=== PATIENT | female | born 1985 | race Caucasian/White ===

== ENCOUNTER 2020-10-21 13:33 | Emergency (ER) | payer MEDICARE, MEDICAID, SELFPAY ==
[2020-10-21 14:49] VITALS: BP 123/76; PULSE 73; RESP 16; TEMP 37.2; O2SAT 99; BMI 36.3
[2020-10-21 16:38] LABS: MANUAL DIFF FLAG NO
[2020-10-21 16:39] LABS: Basophils Percent Auto 0.3 % (0-2); Eosinophils Absolute Auto 0.3 X10*3/uL (0.0-0.4); Eosinophils Percent Auto 2.8 % (0-4); Hematocrit 42.5 % (37-47); Hemoglobin 13.7 g/dl (12.0-16.0); Imm Gran Abs Auto 0.03 X10*3/uL (0.00-0.03); Imm Gran Pct Auto 0.3 % (0.0-0.4); Lymphocytes Absolute Auto 1.8 X10*3/uL (1.2-4.9); Lymphocytes Percent Auto 16.1 % (20-40); Mean Corpuscular HGB Conc 32.2 g/dl (31.0-35.0); Mean Corpuscular Hemoglobin 29.1 pg (27.0-33.0); Mean Corpuscular Volume 90.4 fL (80-98); Monocytes Absolute Auto 0.6 X10*3/uL (0.1-1.2); Monocytes Percent Auto 5.1 % (2-11); Neutrophils Absolute Auto 8.4 X10*3/uL (2.0-8.3); Neutrophils Percent Auto 75.4 % (45-73); Platelet Count 424 X10*3/uL (160-400); Red Cell Distribution Width 12.7 % (11.0-16.0); White Blood Count 11.1 X10*3/uL (4.8-10.8)
[2020-10-21 17:01] LABS: Anion Gap 12 (12-20); Blood Urea Nitrogen 11 mg/dL (9-16); Calcium 9.5 mg/dL (8.4-10.2); Carbon Dioxide 26 mmol/L (22-29); Chloride 105 mmol/L (96-108); Creatinine Clr Calc Pharmacy 130.1; Estimated Glomerular Filt Rate > 60; Glucose Random 78 mg/dL (60-115); Potassium 4.2 mmol/L (3.3-5.1); Sodium 139 mmol/L (135-145)
[2020-10-21 17:25] VITALS: BP 138/79; PULSE 75; RESP 18; O2SAT 98
--- NOTE | 2020-10-21 17:27 | PC.NURSE ---
pt alert and oriented, skin pwd, respirations even and unlabored. pt [place] [facility] [place] since then not feeling right, dizzy when ambulating/feels light headed and disoriented. still having slight discomfort in the right upper region.
[2020-10-21 17:30] VITALS: BP 125/81; PULSE 76
[2020-10-21 17:31] VITALS: BP 141/85; PULSE 75
[2020-10-21 17:32] VITALS: BP 127/71; PULSE 76
--- NOTE | 2020-10-21 17:39 | ED.GENADULT ---
HPI - General Adult General Chief complaint: Dizziness Stated complaint: lightheaded Time Seen by Provider: 10/21/20 17:38 Source: patient Mode of arrival: ambulatory Limitations: no limitations History of Present Illness HPI narrative: 35-year-old female status post laparoscopic cholecystectomy a week ago at [facility], patient is here today for postoperative concern of elevated blood pressure at home to 140s systolic patient is not on hypertensive normally, patient also been feeling foggy and drowsy after the surgery, patient take oxycodone for pain and patient used oxycodone today. Patient otherwise has been eating and drinking normally. Two days after the surgery patient had 4 extremities numbness that lasted for 1 day now it has improved with no symptoms. Related Data Allergies Allergy/AdvReac Type Severity Reaction Status Date / Time aspartame [ASPARTAME] Allergy Unknown VOMITING, Verified 10/21/20 14:55 MIGRAINES cephalexin [From KEFLEX] Allergy Unknown UNKNOWN Verified 10/21/20 14:55 Cephalosporins Allergy Unknown UNK Verified 10/21/20 14:55 [CEPHALOSPORINS] topiramate [From TOPAMAX] Allergy Unknown MIGRAINES Verified 10/21/20 14:55 tramadol [TRAMADOL] Allergy Unknown MIGRAINES Verified 10/21/20 14:55 metronidazole [From Flagyl] Allergy Nausea and Verified 10/21/20 14:55 Vomiting Review of Systems Review of Systems: All other systems are reviewed and are negative Constitutional: Reports as per HPI and Reports no additional constitutional complaints Eyes: Reports as per HPI and Reports no additional eye complaints Reports system reviewed and no additional complaints, except as documented Cardiovascular: Reports as per HPI and Reports no additional cardiovascular complaints Respiratory: Reports as per HPI and Reports no additional respiratory complaints Gastrointestinal: Reports as per HPI and Reports no additional gastrointestinal complaints Genitourinary: Reports no additional female genitourinary complaints Musculoskeletal: Reports no additional musculoskeletal complaints Skin/Breast: Reports system reviewed and no additional complaints, except as docu Psychiatric: Reports no additional psychiatric complaints Endocrine: Reports no additional endocrine complaints Hematologic/Lymphatic: Reports no additional hematologic/lymphatic complaints Allergic/Immunologic: Reports no additional allergic/immunologic complaints Reports system reviewed and no additional complaints, except as documented and Reports Abnormal speech present [facility] Past Medical History Medical History Fibromyalgia Neurofibromatosis type 1-like syndrome Rheumatoid arthritis Social History Social History Patient Tobacco Use Status: Never used Tobacco Use of substances other than those prescribed or required for medical reasons: Yes Substance Use Type: Marijuana Substance Use Frequency: Occasionally Advance Directives: No Advance Directives Information Provided: No Patient : No Physical Exam Vital Signs: Vital Signs: Last Vital Signs Temp 98.2 F 10/21/20 19:35 Pulse 77 10/21/20 19:35 Resp 16 10/21/20 19:35 BP 120/70 10/21/20 19:35 Pulse Ox 100 10/21/20 19:35 Body Mass Index 36.3 Vital signs have been reviewed as appeared to be correct. Blood pressure normal. Heart rate normal. Respiration rate normal. Temperature normal. Oxygen saturation normal. Appearance: Alert. Oriented X3. No acute distress. Head: Normal external exam. Normocephalic. Atraumatic. No Abad signs noted. No raccoon eyes noted Eyes: PERRLA. EOMI. Conjunctiva and sclera normal. Eyelids normal. ENT: TM's Normal. Pharynx normal. Uvula midline. Moist mucous membranes. No trismus noted. No drooling noted. No muffled voice noted. Neck: Normal inspection. Neck supple. FROM. No adenopathy. Thyroid Normal. No meningeal signs. No neck mass noted. CVS: Normal heart rate and rhythm. Heart sound normal. No murmurs noted. Pulses normal throughout. Respiratory: No respiratory distress. Painless inspiration. Breath sounds normal. No wheezes/rales/rhonchi noted. Chest nontender. No accessory muscle usage noted or decreased air movement noted. Abdomen: Soft and nontender. Bowel sounds normal in all 4 quadrants. No distention noted. No organomegaly noted. No visible injury noted. Back: No CVA tenderness. Full range of motion noted. Skin: Skin warm and dry. Normal skin color. Normal skin turgor. No rashes/lesions/lacerations noted. Extremities: No lower extremity edema. Extremities exhibit normal range of motion. Extremities nontender. Neuro: Oriented X 3. Cranial nerve exam: II-XII are grossly intact No motor deficit. No sensory deficit. Reflexes normal. Course Course Course Narrative: Assessment and plan. 35-year-old female status post laparoscopic cholecystectomy, patient came in for evaluation of postoperative concerns, patient with unremarkable vital signs except slight elevation of the blood pressure, unremarkable labs. Will reassure and discharge to follow-up with the surgeon for postsurgical follow-up. Medical Decision Making Lab Data Lab results reviewed: Yes I reviewed the patient's lab results. Result diagrams: 10/21/20 16:34 10/21/20 16:34 Labs: Lab Results 10/21/20 10/21/20 10/21/20 Range/Units 16:34 16:34 19:39 WBC 11.1 H (4.8-10.8) X10*3/uL RBC 4.70 (4.20-5.50) X10*6/uL Hgb 13.7 (12.0-16.0) g/dl Hct 42.5 (37-47) % MCV 90.4 (80-98) fL MCH 29.1 (27.0-33.0) pg MCHC 32.2 (31.0-35.0) g/dl RDW 12.7 (11.0-16.0) % Plt Count 424 H (160-400) X10*3/uL MPV 9.0 L (9.4-12.3) fL Immature Gran % (Auto) 0.3 (0.0-0.4) % Neut % (Auto) 75.4 H (45-73) % Lymph % (Auto) 16.1 L (20-40) % Weakley % (Auto) 5.1 (2-11) % Eos % (Auto) 2.8 (0-4) % Baso % (Auto) 0.3 (0-2) % Lymph # (Auto) 1.8 (1.2-4.9) X10*3/uL Weakley # (Auto) 0.6 (0.1-1.2) X10*3/uL Eos # (Auto) 0.3 (0.0-0.4) X10*3/uL Baso # (Auto) 0.0 (0.0-0.2) X10*3/uL Abs Immat Gran (auto) 0.03 (0.00-0.03) X10*3/uL Absolute Neuts (auto) 8.4 H (2.0-8.3) X10*3/uL Absolute Nucleated RBC 0.000 (0.0-0.012) X10*3/uL Nucleated RBC % (auto) 0.0 (0.0-0.2) /100WBC Sodium 139 (135-145) mmol/L Potassium 4.2 (3.3-5.1) mmol/L Chloride 105 (96-108) mmol/L Carbon Dioxide 26 (22-29) mmol/L Anion Gap 12 (12-20) BUN 11 (9-16) mg/dL Creatinine 0.66 (0.5-1.4) mg/dL Estim Creat Clear Calc 130.1 Estimated GFR > 60 Random Glucose 78 (60-115) mg/dL Calcium 9.5 (8.4-10.2) mg/dL Urine Color YELLOW Urine Appearance CLEAR Urine pH 6.0 (5.0-8.0) Ur Specific Patterson <= 1.005 (1.005-1.025) Urine Protein NEG (NEG-TRACE) MG/DL Urine Glucose (UA) NEG (NEG) MG/DL Urine Ketones NEG (NEG) MG/DL Urine Blood NEG (NEG) Urine Nitrite NEG (NEG) Ur Leukocyte Esterase NEG (NEG) Urine Test (NEGATIVE) 10/21/20 Range/Units 19:39 WBC (4.8-10.8) X10*3/uL RBC (4.20-5.50) X10*6/uL Hgb (12.0-16.0) g/dl Hct (37-47) % MCV (80-98) fL MCH (27.0-33.0) pg MCHC (31.0-35.0) g/dl RDW (11.0-16.0) % Plt Count (160-400) X10*3/uL MPV (9.4-12.3) fL Immature Gran % (Auto) (0.0-0.4) % Neut % (Auto) (45-73) % Lymph % (Auto) (20-40) % Weakley % (Auto) (2-11) % Eos % (Auto) (0-4) % Baso % (Auto) (0-2) % Lymph # (Auto) (1.2-4.9) X10*3/uL Weakley # (Auto) (0.1-1.2) X10*3/uL Eos # (Auto) (0.0-0.4) X10*3/uL Baso # (Auto) (0.0-0.2) X10*3/uL Abs Immat Gran (auto) (0.00-0.03) X10*3/uL Absolute Neuts (auto) (2.0-8.3) X10*3/uL Absolute Nucleated RBC (0.0-0.012) X10*3/uL Nucleated RBC % (auto) (0.0-0.2) /100WBC Sodium (135-145) mmol/L Potassium (3.3-5.1) mmol/L Chloride (96-108) mmol/L Carbon Dioxide (22-29) mmol/L Anion Gap (12-20) BUN (9-16) mg/dL Creatinine (0.5-1.4) mg/dL Estim Creat Clear Calc Estimated GFR Random Glucose (60-115) mg/dL Calcium (8.4-10.2) mg/dL Urine Color Urine Appearance Urine pH (5.0-8.0) Ur Specific Patterson (1.005-1.025) Urine Protein (NEG-TRACE) MG/DL Urine Glucose (UA) (NEG) MG/DL Urine Ketones (NEG) MG/DL Urine Blood (NEG) Urine Nitrite (NEG) Ur Leukocyte Esterase (NEG) Urine Test NEGATIVE (NEGATIVE) Discharge Plan Discharge Clinical Impression: Dizziness, Hypertension Patient Disposition: Home, Self-Care Instructions: Hypertension (ED) Additional Instructions: Follow-up with your general surgeon in 3 days for further postoperative follow-up. Referrals: Maggi Catherine NP [Primary Care Provider] - 2 days
[2020-10-21 19:35] VITALS: BP 120/70; PULSE 77; RESP 16; TEMP 36.8; O2SAT 100
[2020-10-21 19:50] LABS: Glucose Urine UA NEG (NEG); Leukocyte Esterase Urine NEG (NEG); Nitrite Urine NEG (NEG); Specific Gravity - Urine <= 1.005 (1.005-1.025); Urine Blood NEG (NEG); Urine Ketones NEG (NEG); Urine Protein NEG (NEG-TRACE)
[2020-10-21 19:52] LABS: Appearance Urine CLEAR; Color Urine YELLOW; UPreg QC Valid YES; Urine Pregnancy NEGATIVE (NEGATIVE)
== END 2020-10-21 21:02 | disposition home or self-care (01) ==
PROVIDERS: Emergency Provider Emergency Medicine; PCP Nurse Practitioner Family
DX: R42 Dizziness and giddiness (principal); I10 Essential (primary) hypertension; Z90.49 Acquired absence of other specified parts of digestive tract
CPT/HCPCS: 36415; 80048; 81003; 81025; 85025; 99283; 99284

== ENCOUNTER 2020-10-23 20:53 | Emergency (ER) | payer MEDICARE, MEDICAID, SELFPAY ==
--- NOTE | ~2020-10-23 | CT_ITS ---
EXAMINATION: CT ABDOMEN AND PELVIS WITH CONTRAST CLINICAL INFORMATION: Black tarry stool status post cholecystectomy. COMPARISON: None TECHNIQUE: Multidetector volumetric images were obtained from the superior aspect of the liver through the pubic symphysis following administration 85 mL of Omnipaque 350 intravenous contrast. Sagittal and coronal reformatted images were obtained on the technologist's workstation. Oral contrast: No This CT examination was performed using dose optimization techniques as appropriate, variously including the following: *Automated exposure control *Adjustment of mA and/or kV according to patient size (this includes techniques or standardized protocols for targeted exams where dose is matched to indication/reason for exam; i.e. extremities or head) *Use of iterative reconstruction technique DLP: 753 mGy-cm FINDINGS: LUNG BASES: The visualized lung bases are unremarkable. LIVER, GALLBLADDER, AND BILIARY TREE: The liver is normal in size, shape, and attenuation. No focal hepatic lesion or biliary ductal dilatation is present. Prominent inflammatory changes are seen at the gallbladder fossa. Possible collection in the gallbladder fossa given that there is known cholecystectomy. This is ill-defined, but does appear to have a wall. This measures approximately 3.9 x 1.4 x 2 cm. PANCREAS: Unremarkable. SPLEEN: Unremarkable. ADRENAL GLANDS: Unremarkable. KIDNEYS AND URETERS: The kidneys are normal in size, shape, and attenuation. No hydronephrosis, hydroureter, or calculi seen. No perinephric stranding. BLADDER: Unremarkable. GASTROINTESTINAL TRACT: The stomach is unremarkable. The small bowel is normal in caliber. There is no obstruction. There is a normal appendix. There is focal wall thickening at the hepatic flexure of the colon in the area of inflammation, likely reactive. No free air. Trace pelvic free fluid. ABDOMINAL WALL: No significant hernia is appreciated. LYMPH NODES: Normal. VASCULAR: Unremarkable. PELVIC VISCERA: The uterus and adnexa are unremarkable. OSSEOUS STRUCTURES: No acute or suspicious osseous abnormality. Mild degenerative changes at the lower thoracic spine. CT/CT abdomen pelvis w con IMPRESSION: Status post cholecystectomy. Inflammatory changes at the cholecystectomy bed with apparent thick walled collection in the gallbladder fossa. This could represent bile leak. Cannot exclude infectious process. There is mild wall thickening at the hepatic flexure of the colon, which may be reactive.
[2020-10-23 21:34] VITALS: BP 127/69; PULSE 96; RESP 16; TEMP 37.9; O2SAT 98; BMI 36.3
--- NOTE | 2020-10-24 00:55 | ED_ITS ---
HPI - General Adult General Chief complaint: General Medical <RADHA Candelaria Last Filed: 10/24/20 01:48> Stated complaint: BLACK STOOL, FEVER <Aaliyah Alfaro NP - Last Filed: 10/24/20 01:48> Time Seen by Provider: 10/24/20 01:37 <RADHA Candelaria Last Filed: 10/24/20 01:48> Source: patient <Aaliyah Alfaro NP - Last Filed: 10/24/20 01:48> Mode of arrival: ambulatory <Aaliyah Alfaro NP - Last Filed: 10/24/20 01:48> Limitations: no limitations <Aaliyah Alfaro NP - Last Filed: 10/24/20 01:48> History of Present Illness HPI narrative: 35-year-old female status post cholecystectomy on October 14 at [facility] presents with abdominal pain, fever, and an episode of black tarry stools. Patient states the abdominal pain started about 3 days ago, and noted a fever of 100.3. She does not describe any nausea, vomiting, abdominal distention, chest pain or pressure, shortness of breath, palpitations, dysuria, hematuria, edema, dizziness or weakness. <Aaliyah Alfaro NP - Last Filed: 10/24/20 01:48> Onset (ago): day(s) (Three) <Aaliyah Alfaro NP - Last Filed: 10/24/20 01:48> Location: abdomen <Aaliyah Alfaro NP - Last Filed: 10/24/20 01:48> Radiation: non-radiation <Aaliyah Alfaro NP - Last Filed: 10/24/20 01:48> Severity: moderate <Aaliyah Alfaro NP - Last Filed: 10/24/20 01:48> Severity scale (1-10): 8 <RADHA Candelaria Last Filed: 10/24/20 01:48> Quality: aching <Aaliyah Alfaro NP - Last Filed: 10/24/20 01:48> Pain Consistency: constant <RADHA Candelaria Last Filed: 10/24/20 01:48> Relieving factors: none <Aaliyah Alfaro NP - Last Filed: 10/24/20 01:48> Exacerbating factors: movement <Aaliyah Alfaro NP - Last Filed: 10/24/20 01:48> Associated symptoms: denies other symptoms <Aaliyah Alfaro NP - Last Filed: 10/24/20 01:48> Related Data Allergies/adverse reactions: Allergies Allergy/AdvReac Type Severity Reaction Status Date / Time aspartame [ASPARTAME] Allergy Unknown VOMITING, Verified 10/21/20 14:55 MIGRAINES cephalexin [From KEFLEX] Allergy Unknown UNKNOWN Verified 10/21/20 14:55 Cephalosporins Allergy Unknown UNK Verified 10/21/20 14:55 [CEPHALOSPORINS] topiramate [From TOPAMAX] Allergy Unknown MIGRAINES Verified 10/21/20 14:55 tramadol [TRAMADOL] Allergy Unknown MIGRAINES Verified 10/21/20 14:55 metronidazole [From Flagyl] Allergy Nausea and Verified 10/21/20 14:55 Vomiting <RADHA Candelaria Last Filed: 10/24/20 01:48> Review of Systems Review of Systems: Constitutional: Positive malaise, positive Fever, No Chills ENT/Mouth: No Ear Pain, No Hoarseness, No sore throat Eyes: No Eye Pain, No Swelling, No Redness, No Foreign Body Cardiovascular: No Chest Pain, No SOB Respiratory: No Cough, No Dyspnea Gastrointestinal: No Nausea, No Vomiting, No Diarrhea, positive abdominal Pain, positive black stools Genitourinary: No Dysuria, No Hematuria Musculoskeletal: No joint pain, No Myalgias, No Joint Swelling Skin: No Skin lacerations, No rash Neuro: No Weakness, No Numbness, No Paresthesias, No Loss of Consciousness, No Dizziness, No Headache Psych: No Anxiety/Panic, No Depression Heme/Lymph: no easy bruising, no Lymphadenopathy Endocrine: No Polyuria, No Polydipsia <RADHA Candelaria Last Filed: 10/24/20 01:48> Yes all other systems are reviewed and are negative <Aaliyah Alfaro NP - Last Filed: 10/24/20 01:48> PMFSH Past Medical History Attestation statement: The following information was validated with the patient. <RADHA Candelaria Last Filed: 10/24/20 01:48> Source: old records reviewed <Aaliyah Alfaro NP - Last Filed: 10/24/20 01:48> Medical History: Medical History Fibromyalgia Neurofibromatosis type 1-like syndrome Rheumatoid arthritis <Aaliyah Alfaro NP - Last Filed: 10/24/20 01:48> Social History Social History: Social History Patient Tobacco Use Status: Never used Tobacco Substance Use Type: Marijuana Advance Directives: No Advance Directives Information Provided: Yes <Aaliyah Alfaro NP - Last Filed: 10/24/20 01:48> Physical Exam Vital Signs: Vital Signs: Last Vital Signs Temp 98.5 F 10/24/20 04:48 Pulse 89 10/24/20 04:48 Resp 16 10/24/20 04:48 BP 117/68 10/24/20 04:48 Pulse Ox 99 10/24/20 04:48 Body Mass Index 36.3 <Aaliyah Alfaro NP - Last Filed: 10/24/20 01:48> Vital Signs: Last Vital Signs Temp 98.5 F 10/24/20 04:48 Pulse 89 10/24/20 04:48 Resp 16 10/24/20 04:48 BP 117/68 10/24/20 04:48 Pulse Ox 99 10/24/20 04:48 Body Mass Index 36.3 <Josefina Ni MD - Last Filed: 10/24/20 05:01> Appearance: Alert. Oriented X3. Moderate distress. Eyes: Pupils equal, round and reactive to light. Sclera nonicteric. ENT: Pharynx normal. Moist mucous membranes. Neck: Normal inspection. Neck supple. CVS: Normal heart rate and rhythm. Pulses normal. Respiratory: No respiratory distress. Breath sounds normal. Abdomen: Soft and tender to the right upper quadrant, laparoscopic surgical incisions well approximated and healing. Incision to the right lower abdomen still has a suture in place. Skin: Skin warm and dry. Normal skin color. Normal skin turgor. Extremities: No lower extremity edema. Moves all extremities against resistance. Strength 5/5. Neuro: No motor deficit. No sensory deficit. Cranial nerves 2-12 intact. No focal neural deficits. <Aaliyah Alfaro NP - Last Filed: 10/24/20 01:48> Course Course Course Narrative: 35-year-old female presents for abdominal pain, malaise, fevers and black stools. Had cholecystectomy at [facility] on October 14, reported some complications and needs to stay overnight with a drain in place. Will order CBC, Chem 7, lactic, cultures, CT scan abdomen and pelvis with contrast. Occult stool pending. Occult stool positive. 1:43 a.m. Records from [facility] still pending. White count elevated at 14.7. EKG normal sinus. CT scan abdomen pelvis pending. Sign-out to Dr. Ni. <Aaliyah Alfaro NP - Last Filed: 10/24/20 01:48> 35-year-old female presents for abdominal pain, malaise, fevers and black stools. Had cholecystectomy at [facility] on October 14, reported some complications and needs to stay overnight with a drain in place. Will order CBC, Chem 7, lactic, cultures, CT scan abdomen and pelvis with contrast. Occult stool pending. Occult stool positive. 1:43 a.m. Records from [facility] still pending. White count elevated at 14.7. EKG normal sinus. CT scan abdomen pelvis pending. Sign-out to Dr. Ni. I received sign-out from nurse practitioner Dominic. This CT scan is concerning for a possible bile leak. Patient was given 1 dose of clindamycin and levofloxacin in the emergency room. Patient's vitals are stable. I discussed the patient with Dr. Tucker from surgery, declined admitting the patient, recommended to transfer the patient to [facility] where she had her original surgery. I spoke to Dr. Ramirez from surgery at [facility], patient will be directly admitted. Patient on board with plan <Josefina Ni MD - Last Filed: 10/24/20 05:01> Medical Decision Making Differential Diagnosis Differential Diagnosis: Abscess, GI bleed, viral infection <Aaliyah Alfaro NP - Last Filed: 10/24/20 01:48> Medical Records Medical records reviewed: Yes I reviewed the patient's medical records. <Aaliyah Alfaro NP - Last Filed: 10/24/20 01:48> Lab Data Lab results reviewed: Yes I reviewed the patient's lab results. <Aaliyah Alfaro NP - Last Filed: 10/24/20 01:48> Result diagrams: : 10/24/20 01:21 10/24/20 02:05 <Aaliyah Alfaro NP - Last Filed: 10/24/20 01:48> Labs: Lab Results 10/24/20 10/24/20 10/24/20 Range/Units 01:03 01:03 01:21 WBC 14.7 H (4.8-10.8) X10*3/uL RBC 4.48 (4.20-5.50) X10*6/uL Hgb 13.0 (12.0-16.0) g/dl Hct 39.9 (37-47) % MCV 89.1 (80-98) fL MCH 29.0 (27.0-33.0) pg MCHC 32.6 (31.0-35.0) g/dl RDW 12.5 (11.0-16.0) % Plt Count 414 H (160-400) X10*3/uL MPV 9.4 (9.4-12.3) fL Immature Gran % (Auto) 0.3 (0.0-0.4) % Neut % (Auto) 80.2 H (45-73) % Lymph % (Auto) 9.3 L (20-40) % Clarke % (Auto) 7.7 (2-11) % Eos % (Auto) 2.4 (0-4) % Baso % (Auto) 0.1 (0-2) % Lymph # (Auto) 1.4 (1.2-4.9) X10*3/uL Clarke # (Auto) 1.1 (0.1-1.2) X10*3/uL Eos # (Auto) 0.4 (0.0-0.4) X10*3/uL Baso # (Auto) 0.0 (0.0-0.2) X10*3/uL Abs Immat Gran (auto) 0.05 H (0.00-0.03) X10*3/uL Absolute Neuts (auto) 11.8 H (2.0-8.3) X10*3/uL Absolute Nucleated RBC 0.000 (0.0-0.012) X10*3/uL Nucleated RBC % (auto) 0.0 (0.0-0.2) /100WBC Sodium (135-145) mmol/L Potassium (3.3-5.1) mmol/L Chloride (96-108) mmol/L Carbon Dioxide (22-29) mmol/L Anion Gap (12-20) BUN (9-16) mg/dL Creatinine (0.5-1.4) mg/dL Estim Creat Clear Calc Estimated GFR Random Glucose (60-115) mg/dL Lactic Acid (0.5-2.0) mmol/L Calcium (8.4-10.2) mg/dL Total Bilirubin (0.0-1.0) mg/dL AST (5-31) U/L ALT (0-31) U/L Alkaline Phosphatase (39-117) U/L Troponin I High Sens (<3.5-17.0) ng/L Total Protein (6.5-8.0) g/dL Albumin (3.5-5.0) g/dL Urine Color Urine Appearance Urine pH (5.0-8.0) Ur Specific [place] (1.005-1.025) Urine Protein (NEG-TRACE) MG/DL Urine Glucose (UA) (NEG) MG/DL Urine Ketones (NEG) MG/DL Urine Blood (NEG) Urine Nitrite (NEG) Ur Leukocyte Esterase (NEG) Urine RBC (0) /HPF Urine WBC (0-4) /HPF Ur Squamous Epith Cells /LPF Urine Bacteria /LPF Urine Mucus /LPF Urine Test (NEGATIVE) Stool Occult Blood POSITIVE (NEGATIVE) Coronavirus (PCR) NEGATIVE (Negative) Influenza Type A (PCR) NEGATIVE (Negative) Influenza Type B (PCR) NEGATIVE (Negative) RSV RNA Qual (PCR) NEGATIVE (Negative) 10/24/20 10/24/20 10/24/20 Range/Units 01:21 01:24 01:24 WBC (4.8-10.8) X10*3/uL RBC (4.20-5.50) X10*6/uL Hgb (12.0-16.0) g/dl Hct (37-47) % MCV (80-98) fL MCH (27.0-33.0) pg MCHC (31.0-35.0) g/dl RDW (11.0-16.0) % Plt Count (160-400) X10*3/uL MPV (9.4-12.3) fL Immature Gran % (Auto) (0.0-0.4) % Neut % (Auto) (45-73) % Lymph % (Auto) (20-40) % Clarke % (Auto) (2-11) % Eos % (Auto) (0-4) % Baso % (Auto) (0-2) % Lymph # (Auto) (1.2-4.9) X10*3/uL Clarke # (Auto) (0.1-1.2) X10*3/uL Eos # (Auto) (0.0-0.4) X10*3/uL Baso # (Auto) (0.0-0.2) X10*3/uL Abs Immat Gran (auto) (0.00-0.03) X10*3/uL Absolute Neuts (auto) (2.0-8.3) X10*3/uL Absolute Nucleated RBC (0.0-0.012) X10*3/uL Nucleated RBC % (auto) (0.0-0.2) /100WBC Sodium (135-145) mmol/L Potassium (3.3-5.1) mmol/L Chloride (96-108) mmol/L Carbon Dioxide (22-29) mmol/L Anion Gap (12-20) BUN (9-16) mg/dL Creatinine (0.5-1.4) mg/dL Estim Creat Clear Calc Estimated GFR Random Glucose (60-115) mg/dL Lactic Acid 1.0 (0.5-2.0) mmol/L Calcium (8.4-10.2) mg/dL Total Bilirubin (0.0-1.0) mg/dL AST (5-31) U/L ALT (0-31) U/L Alkaline Phosphatase (39-117) U/L Troponin I High Sens < 3.5 (<3.5-17.0) ng/L Total Protein (6.5-8.0) g/dL Albumin (3.5-5.0) g/dL Urine Color YELLOW Urine Appearance HAZY Urine pH 6.0 (5.0-8.0) Ur Specific [place] >= 1.030 H (1.005-1.025) Urine Protein 1+ H (NEG-TRACE) MG/DL Urine Glucose (UA) NEG (NEG) MG/DL Urine Ketones NEG (NEG) MG/DL Urine Blood 2+ H (NEG) Urine Nitrite NEG (NEG) Ur Leukocyte Esterase NEG (NEG) Urine RBC 10-14 H (0) /HPF Urine WBC 1-4 (0-4) /HPF Ur Squamous Epith Cells 2+ /LPF Urine Bacteria 2+ /LPF Urine Mucus 3+ /LPF Urine Test (NEGATIVE) Stool Occult Blood (NEGATIVE) Coronavirus (PCR) (Negative) Influenza Type A (PCR) (Negative) Influenza Type B (PCR) (Negative) RSV RNA Qual (PCR) (Negative) 10/24/20 10/24/20 Range/Units 01:24 02:05 WBC (4.8-10.8) X10*3/uL RBC (4.20-5.50) X10*6/uL Hgb (12.0-16.0) g/dl Hct (37-47) % MCV (80-98) fL MCH (27.0-33.0) pg MCHC (31.0-35.0) g/dl RDW (11.0-16.0) % Plt Count (160-400) X10*3/uL MPV (9.4-12.3) fL Immature Gran % (Auto) (0.0-0.4) % Neut % (Auto) (45-73) % Lymph % (Auto) (20-40) % Clarke % (Auto) (2-11) % Eos % (Auto) (0-4) % Baso % (Auto) (0-2) % Lymph # (Auto) (1.2-4.9) X10*3/uL Clarke # (Auto) (0.1-1.2) X10*3/uL Eos # (Auto) (0.0-0.4) X10*3/uL Baso # (Auto) (0.0-0.2) X10*3/uL Abs Immat Gran (auto) (0.00-0.03) X10*3/uL Absolute Neuts (auto) (2.0-8.3) X10*3/uL Absolute Nucleated RBC (0.0-0.012) X10*3/uL Nucleated RBC % (auto) (0.0-0.2) /100WBC Sodium 136 (135-145) mmol/L Potassium 4.2 (3.3-5.1) mmol/L Chloride 102 (96-108) mmol/L Carbon Dioxide 23 (22-29) mmol/L Anion Gap 15 (12-20) BUN 8 L (9-16) mg/dL Creatinine 0.76 (0.5-1.4) mg/dL Estim Creat Clear Calc 113.0 Estimated GFR > 60 Random Glucose 101 (60-115) mg/dL Lactic Acid (0.5-2.0) mmol/L Calcium 9.6 (8.4-10.2) mg/dL Total Bilirubin 1.6 H (0.0-1.0) mg/dL AST 21 (5-31) U/L ALT 43 H (0-31) U/L Alkaline Phosphatase 108 (39-117) U/L Troponin I High Sens (<3.5-17.0) ng/L Total Protein 7.7 (6.5-8.0) g/dL Albumin 4.7 (3.5-5.0) g/dL Urine Color Urine Appearance Urine pH (5.0-8.0) Ur Specific [place] (1.005-1.025) Urine Protein (NEG-TRACE) MG/DL Urine Glucose (UA) (NEG) MG/DL Urine Ketones (NEG) MG/DL Urine Blood (NEG) Urine Nitrite (NEG) Ur Leukocyte Esterase (NEG) Urine RBC (0) /HPF Urine WBC (0-4) /HPF Ur Squamous Epith Cells /LPF Urine Bacteria /LPF Urine Mucus /LPF Urine Test NEGATIVE (NEGATIVE) Stool Occult Blood (NEGATIVE) Coronavirus (PCR) (Negative) Influenza Type A (PCR) (Negative) Influenza Type B (PCR) (Negative) RSV RNA Qual (PCR) (Negative) <Aaliyah Alfaro NP - Last Filed: 10/24/20 01:48> Lab Results 10/24/20 10/24/20 10/24/20 Range/Units 01:03 01:03 01:21 WBC 14.7 H (4.8-10.8) X10*3/uL RBC 4.48 (4.20-5.50) X10*6/uL Hgb 13.0 (12.0-16.0) g/dl Hct 39.9 (37-47) % MCV 89.1 (80-98) fL MCH 29.0 (27.0-33.0) pg MCHC 32.6 (31.0-35.0) g/dl RDW 12.5 (11.0-16.0) % Plt Count 414 H (160-400) X10*3/uL MPV 9.4 (9.4-12.3) fL Immature Gran % (Auto) 0.3 (0.0-0.4) % Neut % (Auto) 80.2 H (45-73) % Lymph % (Auto) 9.3 L (20-40) % Clarke % (Auto) 7.7 (2-11) % Eos % (Auto) 2.4 (0-4) % Baso % (Auto) 0.1 (0-2) % Lymph # (Auto) 1.4 (1.2-4.9) X10*3/uL Clarke # (Auto) 1.1 (0.1-1.2) X10*3/uL Eos # (Auto) 0.4 (0.0-0.4) X10*3/uL Baso # (Auto) 0.0 (0.0-0.2) X10*3/uL Abs Immat Gran (auto) 0.05 H (0.00-0.03) X10*3/uL Absolute Neuts (auto) 11.8 H (2.0-8.3) X10*3/uL Absolute Nucleated RBC 0.000 (0.0-0.012) X10*3/uL Nucleated RBC % (auto) 0.0 (0.0-0.2) /100WBC Sodium (135-145) mmol/L Potassium (3.3-5.1) mmol/L Chloride (96-108) mmol/L Carbon Dioxide (22-29) mmol/L Anion Gap (12-20) BUN (9-16) mg/dL Creatinine (0.5-1.4) mg/dL Estim Creat Clear Calc Estimated GFR Random Glucose (60-115) mg/dL Lactic Acid (0.5-2.0) mmol/L Calcium (8.4-10.2) mg/dL Total Bilirubin (0.0-1.0) mg/dL AST (5-31) U/L ALT (0-31) U/L Alkaline Phosphatase (39-117) U/L Troponin I High Sens (<3.5-17.0) ng/L Total Protein (6.5-8.0) g/dL Albumin (3.5-5.0) g/dL Urine Color Urine Appearance Urine pH (5.0-8.0) Ur Specific [place] (1.005-1.025) Urine Protein (NEG-TRACE) MG/DL Urine Glucose (UA) (NEG) MG/DL Urine Ketones (NEG) MG/DL Urine Blood (NEG) Urine Nitrite (NEG) Ur Leukocyte Esterase (NEG) Urine RBC (0) /HPF Urine WBC (0-4) /HPF Ur Squamous Epith Cells /LPF Urine Bacteria /LPF Urine Mucus /LPF Urine Test (NEGATIVE) Stool Occult Blood POSITIVE (NEGATIVE) Coronavirus (PCR) NEGATIVE (Negative) Influenza Type A (PCR) NEGATIVE (Negative) Influenza Type B (PCR) NEGATIVE (Negative) RSV RNA Qual (PCR) NEGATIVE (Negative) 10/24/20 10/24/20 10/24/20 Range/Units 01:21 01:24 01:24 WBC (4.8-10.8) X10*3/uL RBC (4.20-5.50) X10*6/uL Hgb (12.0-16.0) g/dl Hct (37-47) % MCV (80-98) fL MCH (27.0-33.0) pg MCHC (31.0-35.0) g/dl RDW (11.0-16.0) % Plt Count (160-400) X10*3/uL MPV (9.4-12.3) fL Immature Gran % (Auto) (0.0-0.4) % Neut % (Auto) (45-73) % Lymph % (Auto) (20-40) % Clarke % (Auto) (2-11) % Eos % (Auto) (0-4) % Baso % (Auto) (0-2) % Lymph # (Auto) (1.2-4.9) X10*3/uL Clarke # (Auto) (0.1-1.2) X10*3/uL Eos # (Auto) (0.0-0.4) X10*3/uL Baso # (Auto) (0.0-0.2) X10*3/uL Abs Immat Gran (auto) (0.00-0.03) X10*3/uL Absolute Neuts (auto) (2.0-8.3) X10*3/uL Absolute Nucleated RBC (0.0-0.012) X10*3/uL Nucleated RBC % (auto) (0.0-0.2) /100WBC Sodium (135-145) mmol/L Potassium (3.3-5.1) mmol/L Chloride (96-108) mmol/L Carbon Dioxide (22-29) mmol/L Anion Gap (12-20) BUN (9-16) mg/dL Creatinine (0.5-1.4) mg/dL Estim Creat Clear Calc Estimated GFR Random Glucose (60-115) mg/dL Lactic Acid 1.0 (0.5-2.0) mmol/L Calcium (8.4-10.2) mg/dL Total Bilirubin (0.0-1.0) mg/dL AST (5-31) U/L ALT (0-31) U/L Alkaline Phosphatase (39-117) U/L Troponin I High Sens < 3.5 (<3.5-17.0) ng/L Total Protein (6.5-8.0) g/dL Albumin (3.5-5.0) g/dL Urine Color YELLOW Urine Appearance HAZY Urine pH 6.0 (5.0-8.0) Ur Specific [place] >= 1.030 H (1.005-1.025) Urine Protein 1+ H (NEG-TRACE) MG/DL Urine Glucose (UA) NEG (NEG) MG/DL Urine Ketones NEG (NEG) MG/DL Urine Blood 2+ H (NEG) Urine Nitrite NEG (NEG) Ur Leukocyte Esterase NEG (NEG) Urine RBC 10-14 H (0) /HPF Urine WBC 1-4 (0-4) /HPF Ur Squamous Epith Cells 2+ /LPF Urine Bacteria 2+ /LPF Urine Mucus 3+ /LPF Urine Test (NEGATIVE) Stool Occult Blood (NEGATIVE) Coronavirus (PCR) (Negative) Influenza Type A (PCR) (Negative) Influenza Type B (PCR) (Negative) RSV RNA Qual (PCR) (Negative) 10/24/20 10/24/20 Range/Units 01:24 02:05 WBC (4.8-10.8) X10*3/uL RBC (4.20-5.50) X10*6/uL Hgb (12.0-16.0) g/dl Hct (37-47) % MCV (80-98) fL MCH (27.0-33.0) pg MCHC (31.0-35.0) g/dl RDW (11.0-16.0) % Plt Count (160-400) X10*3/uL MPV (9.4-12.3) fL Immature Gran % (Auto) (0.0-0.4) % Neut % (Auto) (45-73) % Lymph % (Auto) (20-40) % Clarke % (Auto) (2-11) % Eos % (Auto) (0-4) % Baso % (Auto) (0-2) % Lymph # (Auto) (1.2-4.9) X10*3/uL Clarke # (Auto) (0.1-1.2) X10*3/uL Eos # (Auto) (0.0-0.4) X10*3/uL Baso # (Auto) (0.0-0.2) X10*3/uL Abs Immat Gran (auto) (0.00-0.03) X10*3/uL Absolute Neuts (auto) (2.0-8.3) X10*3/uL Absolute Nucleated RBC (0.0-0.012) X10*3/uL Nucleated RBC % (auto) (0.0-0.2) /100WBC Sodium 136 (135-145) mmol/L Potassium 4.2 (3.3-5.1) mmol/L Chloride 102 (96-108) mmol/L Carbon Dioxide 23 (22-29) mmol/L Anion Gap 15 (12-20) BUN 8 L (9-16) mg/dL Creatinine 0.76 (0.5-1.4) mg/dL Estim Creat Clear Calc 113.0 Estimated GFR > 60 Random Glucose 101 (60-115) mg/dL Lactic Acid (0.5-2.0) mmol/L Calcium 9.6 (8.4-10.2) mg/dL Total Bilirubin 1.6 H (0.0-1.0) mg/dL AST 21 (5-31) U/L ALT 43 H (0-31) U/L Alkaline Phosphatase 108 (39-117) U/L Troponin I High Sens (<3.5-17.0) ng/L Total Protein 7.7 (6.5-8.0) g/dL Albumin 4.7 (3.5-5.0) g/dL Urine Color Urine Appearance Urine pH (5.0-8.0) Ur Specific [place] (1.005-1.025) Urine Protein (NEG-TRACE) MG/DL Urine Glucose (UA) (NEG) MG/DL Urine Ketones (NEG) MG/DL Urine Blood (NEG) Urine Nitrite (NEG) Ur Leukocyte Esterase (NEG) Urine RBC (0) /HPF Urine WBC (0-4) /HPF Ur Squamous Epith Cells /LPF Urine Bacteria /LPF Urine Mucus /LPF Urine Test NEGATIVE (NEGATIVE) Stool Occult Blood (NEGATIVE) Coronavirus (PCR) (Negative) Influenza Type A (PCR) (Negative) Influenza Type B (PCR) (Negative) RSV RNA Qual (PCR) (Negative) <Josefina Ni MD - Last Filed: 10/24/20 05:01> ECG Data Attestation: I personally reviewed and interpreted this ECG as follows: <Aaliyah Alfaro NP - Last Filed: 10/24/20 01:48> Prior ECG tracings: available for review <Aaliyah Alfaro NP - Last Filed: 10/24/20 01:48> Interpretation: Vent. Rate : 085 BPM ? ? Atrial Rate : 085 BPM ?? P-R Int : 166 ms? QRS Dur : 082 ms ? ? QT Int : 362 ms ? ? ? P-R-T Axes : 042 068 043 degrees ?? QTc Int : 430 ms ? Normal sinus rhythm Normal ECG When compared with ECG of 17-DEC-2018 23:24, No significant change was found 24-OCT-2020 01:05:21 <Aaliyah Alfaro NP - Last Filed: 10/24/20 01:48> Discharge Plan Discharge Clinical Impression: Abdominal pain <Aaliyah Alfaro NP - Last Filed: 10/24/20 01:48> Patient Disposition: [facility] <Aaliyah Alfaro NP - Last Filed: 10/24/20 01:48> Transfer Details: Direct admission to surgical floor at [facility] <Aaliyah Alfaro NP - Last Filed: 10/24/20 01:48> Direct admission to surgical floor at [facility] <Josefina Ni MD - Last Filed: 10/24/20 05:01>
--- NOTE | 2020-10-24 00:56 | ECG_ITS ---
Test Reason : POST SURGERY Blood Pressure : / mmHG Vent. Rate : 085 BPM Atrial Rate : 085 BPM P-R Int : 166 ms QRS Dur : 082 ms QT Int : 362 ms P-R-T Axes : 042 068 043 degrees QTc Int : 430 ms Normal sinus rhythm Normal ECG When compared with ECG of 17-DEC-2018 23:24, No significant change was found Referred By: Aaliyah Alfaro Electronically Signed By:POLI LEWIS
[2020-10-24 00:58] VITALS: BP 113/69; PULSE 76; RESP 18; TEMP 37.7; O2SAT 99
[2020-10-24 01:31] LABS: MANUAL DIFF FLAG NO
[2020-10-24 01:33] LABS: Basophils Percent Auto 0.1 % (0-2); Eosinophils Absolute Auto 0.4 X10*3/uL (0.0-0.4); Eosinophils Percent Auto 2.4 % (0-4); Hematocrit 39.9 % (37-47); Imm Gran Abs Auto 0.05 X10*3/uL (0.00-0.03); Imm Gran Pct Auto 0.3 % (0.0-0.4); Lymphocytes Absolute Auto 1.4 X10*3/uL (1.2-4.9); Lymphocytes Percent Auto 9.3 % (20-40); Mean Corpuscular HGB Conc 32.6 g/dl (31.0-35.0); Mean Corpuscular Volume 89.1 fL (80-98); Mean Platelet Volume 9.4 fL (9.4-12.3); Monocytes Absolute Auto 1.1 X10*3/uL (0.1-1.2); Monocytes Percent Auto 7.7 % (2-11); Neutrophils Absolute Auto 11.8 X10*3/uL (2.0-8.3); Neutrophils Percent Auto 80.2 % (45-73); Platelet Count 414 X10*3/uL (160-400); Red Blood Count 4.48 X10*6/uL (4.20-5.50); Red Cell Distribution Width 12.5 % (11.0-16.0); White Blood Count 14.7 X10*3/uL (4.8-10.8)
[2020-10-24 01:34] LABS: Glucose Urine UA NEG (NEG); Leukocyte Esterase Urine NEG (NEG); Nitrite Urine NEG (NEG); Specific Gravity - Urine >= 1.030 (1.005-1.025); UACC Culture Trigger NO; Urine Blood 2+ (NEG); Urine Ketones NEG (NEG); Urine Protein 1+ MG/DL (NEG-TRACE)
[2020-10-24 01:39] LABS: Appearance Urine HAZY; Color Urine YELLOW; UPreg QC Valid YES; Urine Pregnancy NEGATIVE (NEGATIVE)
[2020-10-24 01:41] LABS: OBS Int Ctl Valid YES; OBS1 POSITIVE (NEGATIVE)
[2020-10-24 01:46] LABS: Bacteria Urine 2+ /LPF; Mucus Urine 3+ /LPF; Squamous Epithelial Cell Urine 2+ /LPF
[2020-10-24 01:58] LABS: Troponin-I High Sensitivity < 3.5 ng/L (<3.5-17.0)
[2020-10-24 02:12] LABS: Influenza A PCR NEGATIVE (Negative); Influenza B PCR NEGATIVE (Negative); Resp Syncy Virus RNA Qual PCR NEGATIVE (Negative); SARS COV2 PCR INHOUSE NEGATIVE (Negative)
[2020-10-24] MEDS: 0.9 % Sodium Chloride 1,000 ML 999 ML IVCONT ×2 (02:17→04:47)
[2020-10-24] MEDS: Morphine Sulfate 4 MG/ML CARTRIDGE IVPUSH (02:17)
[2020-10-24] MEDS: ondansetron HCL 4 MG/2 ML VIAL IVPUSH (02:17)
[2020-10-24 02:41] LABS: Alanine Aminotransferase 43 U/L (0-31); Albumin Level 4.7 g/dL (3.5-5.0); Alkaline Phosphatase 108 U/L (39-117); Anion Gap 15 (12-20); Aspartate Amino Transferase 21 U/L (5-31); Bilirubin Total 1.6 mg/dL (0.0-1.0); Blood Urea Nitrogen 8 mg/dL (9-16); Calcium 9.6 mg/dL (8.4-10.2); Carbon Dioxide 23 mmol/L (22-29); Chloride 102 mmol/L (96-108); Estimated Glomerular Filt Rate > 60; Glucose Random 101 mg/dL (60-115); Potassium 4.2 mmol/L (3.3-5.1); Sodium 136 mmol/L (135-145); Total Protein 7.7 g/dL (6.5-8.0)
[2020-10-24] MEDS: iohexoL 350 MG/ML 100 ML INFUS..BTL 85 ML IV (03:42)
[2020-10-24] MEDS: Clindamycin Phosphate/D5W 300 MG/50 ML PIGGYBACK 100 MG IV (04:25)
[2020-10-24 04:48] VITALS: BP 117/68; PULSE 89; RESP 16; TEMP 36.9; O2SAT 99
--- NOTE | 2020-10-24 04:54 | PC.NURSE ---
PT REPORTS UPPER MID ABDOMINAL DISCOMFORT, SIMILAR TO HER DISCOMFORT PRIOR TO CHOLECYSTECTOMY ON 10/14. PT REPORTS NAUSEA, BUT DENIES VOMITING. PT ARRIVED WITH 09/11 DISCOMFORT. FOLLOWING 4 MG MORPHINE IVP, PT'S PAIN /. PT AMBULATORY TO BATHROOM WITHOUT DIFFICULTY.
[2020-10-24] MEDS: levoFLOXacin/D5W 500 MG/100 ML PIGGYBACK 100 MG IV (05:04)
[2020-10-24 06:12] VITALS: BP 127/67; PULSE 84; RESP 16; O2SAT 99
--- NOTE | 2020-10-24 06:48 | PC.NURSE ---
PT ACCEPTED A DIRECT ADMIT TO [facility]. CALLED [facility] [phone] TO GIVE REPORT TO AME. AME TO CALL ME BACK. EMS TRANSPORTING BEFORE CALL BACK.
--- NOTE | 2020-10-24 06:54 | PC.NURSE ---
SECOND CALL TO [facility], UNABLE TO GIVE REPORT.
== END 2020-10-24 06:52 | disposition short-term general hospital (02) ==
PROVIDERS: Nurse Practitioner Family; Emergency Provider Emergency Medicine; PCP Nurse Practitioner Family
DX: R10.9 Unspecified abdominal pain (principal); K91.89 Other postprocedural complications and disorders of digestive system; Z20.822 Contact with and (suspected) exposure to COVID-19; R50.9 Fever, unspecified; Z90.49 Acquired absence of other specified parts of digestive tract
CPT/HCPCS: 0241U; 36415; 74177; 80053; 81001; 81025; 82272; 83605; 84484; 85025; 87040; 93005; 96361; 96365; 96368; 96375; 99285; J1956; J2270; J2405; Q9967

== ENCOUNTER 2024-09-29 10:54 | Outpatient (AMB) | payer MEDICARE, MEDICAID, SELFPAY ==
--- NOTE | 2024-09-29 11:18 | MHC.OFFVIS ---
Intake Visit Reasons: 6 mnts PTC Allergies aspartame (ASPARTAME) Allergy (Unknown, Verified 09/29/24 11:26) VOMITING, MIGRAINES cephalexin (From KEFLEX) Allergy (Unknown, Verified 09/29/24 11:26) UNKNOWN topiramate (From TOPAMAX) Allergy (Unknown, Verified 09/29/24 11:26) MIGRAINES tramadol (TRAMADOL) Allergy (Unknown, Verified 09/29/24 11:26) MIGRAINES metronidazole (From Flagyl) Allergy (Verified 09/29/24 11:26) Nausea and Vomiting Medication List - Last Reconciled 09/29/24 by Kim Lorenzo, DELIA albuterol sulfate 90 mcg/actuation (Ventolin HFA) 2 puffs inhalation Q6H PRN cyclobenzaprine 10 mg PO BEDTIME diclofenac sodium 75 mg PO BID hydroxychloroquine 200 mg PO BID ondansetron HCl 4 mg PO Q8H sumatriptan succinate take 1 tab at onset of headache; if no relief, may repeat 1 tab after at least 2 hrs; max = 2 tabs/24 hrs PO HPI Comments Details: She was doing okay. Under more stress lately. Headaches were okay. Gets tension to back of head about once a week and uses heating pad or ice. Gets stronger headache around head with photophobia and sometimes sonophobia and nausea. Sumatriptan does not help much. She used Zomig in the past which worked better. Vision has been okay. Had recent eye exam and has new script for glasses which helped with fuzzy vision she was getting off and on. Some mild neck pain and stiffness. Diclofenac twice a day as needed helps. Sleep was up and down. She works with a therapist. She has tried many medications for mood including multiple SSRIs, SNRIs, and mood stabilizers, but made symptoms worse. Had hysterectomy in 10/2023. Had tubal ligation in 02/2023. Symptoms of pseudotumor cerebri nearly completely resolved with 1 week of having IUD removed in 01/2023 and cancelled LP. Pressure in head and behind eyes resolved, was able to lay flat and sit up right. No nausea or vomiting. Colors back to normal, no halo effect in vision. Eye exams without concerns or significant findings. Baseline tension in upper neck. Throbbing in ears better. Previously had pressure in head and vomiting for 1 week. Eyes were bothering her with 2 episodes where the colors were turned down. Few seconds of blurring. Had noise and louder pulsation heartbeat in right ear. MRI 12/26/2022 consistent with benign intracranial hypertension. She was diagnosed with neurofibromatosis type I at age 3. Her father and two daughters also have this. 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 She was followed by Dr. Townsend until about 2017. Manifestations of the neurofibromatosis include multiple cafe au lait spots and a few small neurofibromas in her forearms and right posterior thigh. She also has a history of migraines since childhood sometimes triggered by stress. She gets either headaches that originate in the base of the skull with heavy pressure sometimes leading into nausea and vomiting and at other times they're more frontal headaches with photophobia or sonophobia and pounding. Average headache frequency is about one a week. She has not been taking any prophylactic or abortive therapy for the migraines since 2017. [facility] Medical History (Updated 09/29/24 @ 11:23 by Kim Lorenzo CNP) Tension headache Pseudotumor cerebri PTSD (post-traumatic stress disorder) Asthma Depression with anxiety Migraine Rheumatoid arthritis Neurofibromatosis type 1-like syndrome Fibromyalgia Surgical History (Updated 09/29/24 @ 11:25 by Kim Lorenzo CNP) H/O tubal ligation H/O: hysterectomy Social History Patient Tobacco Use Status: Never used Tobacco Substance Use Type: Marijuana Review of Systems Const Denies chills, Denies daytime sleepiness, Denies difficulty sleeping, Reports fatigue, Denies fever(s), Denies frequent falls, Reports headache(s), Denies increased appetite, Denies poor appetite, Denies snoring, Denies weakness, Denies weight gain and Denies weight loss Eyes Denies loss of vision ENT Denies vertigo, Denies dizziness, Reports headache(s) and Reports neck pain Card Denies chest pain at rest, Denies chest pain with activity, Denies syncope, Denies leg edema, Denies palpitations, Denies dyspnea and Denies dyspnea on exertion Resp Denies cough, Denies dyspnea, Denies dyspnea on exertion and Denies snoring GI Denies abdominal pain, Denies constipation, Denies heartburn, Denies diarrhea and Denies nausea Denies urinary frequency, Denies urinary incontinence and Denies urinary urgency Musc Denies abnormal gait, Reports back pain, Reports myalgias, Reports arthralgias, Reports neck pain, Denies numbness and Denies tingling Neuro Denies abnormal gait, Denies vertigo, Denies dizziness, Denies syncope, Denies frequent falls, Reports headache(s), Denies lack of coordination, Denies loss of vision, Denies memory loss, Denies numbness, Denies Other visual disturbances, Denies restless legs, Denies seizure-like activity, Denies tingling, Denies paresthesias, Denies tremor(s) and Denies weakness Psych Reports anxiety, Denies depression, Denies auditory hallucinations, Denies memory loss and Denies visual hallucinations Endo Reports fatigue and Denies palpitations Physical Exam Const Other: General Appearance:? normal, in no acute distress. Heart:? S1, S2 normal, no murmurs. Lungs:? clear anteriorly and posteriorly. Musculoskeletal:? normal. Extremities:? no edema. Psych:? alert, oriented, cognitive function intact, cooperative with exam. Neuro Other: Abnormal Neurological Findings:?Multiple cafe au lait spots and small neurofibromas to face, forearms, and R posterior thigh.? Mental Status: alert and oriented X 3. Normal attention, orientation, memory, and affect. Cranial Nerves: Pupils are equal, round, and reactive to light. External ocular muscles are intact. Visual atkinson are full, no ptosis. Face is symmetrical, no facial weakness or droop. Facial sensations are normal. Tongue protrudes in midline. Palate elevates symmetrically. Shoulder shrugging is normal Motor Examination: Normal muscle tone, bulk and strength. No atrophy or fasciculations. No drift of the extended upper extremities. DTR 2+. Plantars are flexor. Straight Leg Raisin degrees. Sensory Exam: Normal light touch, temperature, pinprick, vibration, and joint-position sensations. Rhomberg sign is absent. Coordination: No ataxia. No titubation. Quedkc-tc-ekrd, visp-zeep-pgcj test, and rapid alternating movements were normal. Gait Exam: Within normal limits. Cerebellar Signs: Tjvplm-xa-creh and fsjo-vm-zwdl is normal. No dysdiadochokinesia. Extrapyramidal System: No tremor, rigidity with normal facial expressions. No bradykinesia. No bradyphrenia. Normal arm swing and posture. No propulsion or retropulsion. Speech: Normal. No dysphasia or dysarthria. Results Reviewed Results Reviewed: MRI 12/26/22 consistent with benign intracranial hypertension. Assessment & Plan Assessment & Plan (1) Pseudotumor cerebri: Code(s): G93.2 - Benign intracranial hypertension Category: Medical (2) Neurofibromatosis type 1-like syndrome: Code(s): Q87.89 - Other specified congenital malformation syndromes, not elsewhere classified Category: Medical (3) Migraine: Code(s): G43.909 - Migraine, unspecified, not intractable, without status migrainosus Category: Medical Qualifiers: Migraine type: unspecified Status migrainosus presence: without status migrainosus Intractability: not intractable Qualified Code(s): G43.909 - Migraine, unspecified, not intractable, without status migrainosus Plan: Sumatriptan did not help and medication was stopped. Start Zomig 5mg 1 tablet as needed for nausea. Continue ondansetron 4mg 1 tablet as needed for nausea (4) Tension headache: Code(s): G44.209 - Tension-type headache, unspecified, not intractable Category: Medical (5) Fibromyalgia: Code(s): M79.7 - Fibromyalgia Category: Medical Plan: Continue diclofenac 75mg 1 tablet twice a day Plan Meds tried: Topiramate (s/e: increased headaches, hair loss), sumatriptan Medications: New ondansetron 4 mg PO DAILY PRN 10 tabs 5RF nausea and vomiting 30 days zolmitriptan (Zomig) take 1 tab at onset of headache; if no relief, may repeat 1 tab after at least 2 hrs; max = 2 tabs/24 hrs PO 10 tabs 5RF 30 days Discontinued ondansetron HCl Discontinued Reason: Order 4 mg PO Q8H Coding Level of Care Code Est Pt Level 4 (65729) Diagnoses Pseudotumor cerebri G93.2 Neurofibromatosis type 1-like syndrome Q87.89 Migraine without status migrainosus, not intractable, unspecified migraine type G43.909 Migraine type: unspecified Status migrainosus presence: without status migrainosus Intractability: not intractable Tension headache G44.209 Fibromyalgia M79.7
--- OUTSIDE RECORDS SUMMARY | 2024-09-29 12:11 | XMS_ITS | Encounter Summary ---
Author Organization [facility] Address [address] [place] [id number] Phone Care Team Providers Care Salt Cutter Name Role Phone Maggi Catherine RADHA Primary Care Provider Sherry Golden MD Primary Care Provider [phone] Arturo Urias DO Primary Care Provider [phone]- [phone] Encounter Details Date Type Department Care Team (Late st Contact Info) Description 02/12/2020 Procedure Pass [facility] Endoscopy Admitting Dept Virtual Department [address] [place] [address] [id number] Social History Tobacco Use Types Packs/Day Years Used Date Smoking Tobacco: Never Smokeless Tobacco: Never Alcohol Use Standard Drinks/Week Comments Yes 0 (1 standard drink = 0.6 oz pur e alcohol) very rare Comments No Sex and Gender Information Value Date Recorded Sex Assigned at Female 06/12/2018 6:33 PM EDT Legal Sex Female 6:49 PM EST Gender Identity Female 06/12/2018 6:33 PM EDT Sexual Orientation Choose not to disclose 2018 6:33 PM EDT Occupation Industry Job Start Date Job End Date disability Not on file Not on file Not on file documented as of this encounter Plan of Treatment Upcoming Encounters Date Type Department Care Team (Late Contact Info) Description 10/10/2024 11:40 AM EDT Office Visit [facility] Rheumatology [address] [place] [address] Neisha Saldana MD, MPH [address] [facility], [address] [place] [address] [email or web address] documented as of this encounter Visit Diagnoses Not on filedocumented in this encounter Additional Health Concerns Infection Onset Date Last Indicated Resolved Time CoV-Exposed Comment:Recent close contact documented in the COVID-19 PCR/PRO order 03/01/2021 03/01/2021 03/16/2021 1:[address] documented as of this encounter Care Teams Salt Cutter Relationship Specialty Start Date End Date Maggi Catherine NP [address] [place] [address] [email or web address] PCP - General Family Medicine 02/12/20 11/10/21 Sherry Golden MD [address] [place] [address] [email or web address] PCP - General Family Medicine 11/11/21 Arturo Urias DO [address] [address] PCP - General Family Medicine 10/10/23 documented as of this encounter Additional Source Comments The information contained in this document represents components of the legal health record. It is not the complete legal health record.[facility]
== END 2024-09-29 11:40 | disposition home or self-care (01) ==
LOC: HO.HSM 10:54
PROVIDERS: PCP Family Medicine; Visit Provider Registered Nurse
DX: G93.2 Benign intracranial hypertension (principal); Q87.89 Other specified congenital malformation syndromes, not elsewhere classified; G43.909 Migraine, unspecified, not intractable, without status migrainosus; G44.209 Tension-type headache, unspecified, not intractable; M79.7 Fibromyalgia
CPT/HCPCS: 99214

== ENCOUNTER → 2024-09-29 10:54 | Outpatient (BNVA) | payer MEDICARE, MEDICAID, SELFPAY | PROVIDERS: PCP Family Medicine; Visit Provider Registered Nurse | DX: G93.2 Benign intracranial hypertension (principal); Q87.89 Other specified congenital malformation syndromes, not elsewhere classified; G43.909 Migraine, unspecified, not intractable, without status migrainosus; G44.209 Tension-type headache, unspecified, not intractable; M79.7 Fibromyalgia | CPT/HCPCS: 99212 ==